=== PATIENT | male | born 1955 | race Caucasian/White ===

== ENCOUNTER 2018-05-27 12:29 | Inpatient (IN) | payer BC, OTHER ==
--- NOTE | 2018-05-27 12:40 | PDOC ---
History of Present Illness - General Chief Complaint: CVA/TIA Stated Complaint: CONFUSED Time Seen by Provider: 05/27/18 12:33 History Source: Patient Exam Limitations: Clinical Condition - History of Present Illness Initial Comments: 63 yo M history HL, HTN presents with altered speech. As per at bedside, he was speaking normally last night when they went to bed at 10:30pm. She left to run errands around 9 this morning, then returned home just before 12 noon. When she got home she noted that he was repeating a sentences that did not make sense, initially she thought he was joking. However, then she noted that he was having difficulty with word-finding and comprehension. No changes in movement nor sensation. He states that he is having difficulty answering questions, but is understanding most of what people are saying. No prior history of stroke. Past History - Past Medical History Allergies/Adverse Reactions: Allergies Allergy/AdvReac Type Severity Reaction Status Date / Time No Known Allergies Allergy Verified 05/27/18 12:31 Home Medications: Ambulatory Orders Lisinopril 10 mg PO DAILY 05/27/18 Review of Systems - Review of Systems Able to Perform ROS?: Yes Comments:: GENERAL/CONSTITUTIONAL: No fever or chills. No weakness. HEAD, EYES, EARS, NOSE AND THROAT: No change in vision. No ear pain or discharge. No sore throat. CARDIOVASCULAR: No chest pain or shortness of breath. RESPIRATORY: No cough, wheezing, or hemoptysis. GASTROINTESTINAL: No nausea, vomiting, diarrhea or constipation. GENITOURINARY: No dysuria, frequency, or change in urination. MUSCULOSKELETAL: No joint or muscle swelling or pain. No neck or back pain. SKIN: No rash NEUROLOGIC: No headache, vertigo, loss of consciousness, or change in strength/ sensation. +Speech and comprehension difficulty. ENDOCRINE: No increased thirst. No abnormal weight change. HEMATOLOGIC/LYMPHATIC: No anemia, easy bleeding, or history of blood clots. ALLERGIC/IMMUNOLOGIC: No hives or skin allergy. *Physical Exam - Physical Exam Comments: GENERAL: Awake, alert, and fully oriented, in no acute distress HEAD: No signs of trauma EYES: PERRLA, EOMI, sclera anicteric, conjunctiva clear ENT: Auricles normal inspection, hearing grossly normal, nares patent, oropharynx clear without exudates. Moist mucosa NECK: Normal ROM, supple, no lymphadenopathy, JVD, or masses LUNGS: Breath sounds equal, clear to auscultation bilaterally. No wheezes, and no crackles HEART: Regular rate and rhythm, normal S1 and S2, no murmurs, rubs or gallops ABDOMEN: Soft, nontender, normoactive bowel sounds. No guarding, no rebound. No masses EXTREMITIES: Normal range of motion, no edema. No clubbing or cyanosis. No cords, erythema, or tenderness NEUROLOGICAL: Cranial nerves II through XII grossly intact. Normal gait. Motor and sensation intact. Speech is intelligible, however, he does not answer questions appropriately. +Aphasia- word-finding difficulty. SKIN: Warm, Dry, normal turgor, no rashes or lesions noted. NIH Stroke Scale - Last Known Well Date/Time & Onset Date Last Known Well: 05/26/18 Time Last Known Well: 22:30 - Initial Evaluation Level of consciousness: Alert Ask patient the month and their age: Answers one correctly Ask patient to open & close eyes; make fist and let go: Obeys one correctly Best gaze (horizontal eye movement): Normal Visual field testing: No visual field loss Facial paresis (Show teeth/raise eyebrows/close eyes tight): Normal symmetrical movement Motor Function: Left Arm: Normal Motor Function: Right Arm: Normal (extends arm 90 (or 45) degrees for 10 seconds without drift Motor Function: Left Leg: Normal (extends leg 30 degrees for 5 seconds without drift) Motor Function: Right Leg: Normal (extends leg 30 degrees for 5 seconds without drift) Limb Ataxia: No ataxia Sensory(Use pinprick test arms,legs,trunk,face/side to side): Normal Best language (Describe picture, name items, read sentences): Mild to moderate aphasia Dysarthria (read several words): Normal articulation Extinction and Inattention: No abnormality - Total Score NIH Stroke Scale Score: 3 tPA Exclusion checklist 3-4.5h - Time Elapsed Date last known well: 05/26/18 Time last known well: 22:30 Elaspsed time: Day(s) and 16 Hour(s) and 22 Minutes - Thrombolytic Therapy Candidate Is patient eligible for thrombolytic therapy: No - Ineligibility reason(s) Reasons No tPA given: Outside of window - delayed arrival Heart Score/ECG Review - ECG Impressions Comment:: EKG read 12:46- Sinus kassi 53 bpm, no acute ST/T changes Critical Care Time/MDM Note - Medical Decision Making Note: 05/27/18 12:43 Pt last known well last night when he went to bed approximately 10:30pm. Now with aphasia and difficulty with comprehension. Suspected ischemic vs hemorrhagic stroke. Awaiting CTH, then will discuss with neurology. He is out of the window for tPA as last known well was more than 4.5 hrs ago. 05/27/18 14:08 CT read- no acute findings. Paged Dr. Villavicencio, process improvement consultant for neuro. Awaiting callback. 05/27/18 14:40 Case d/w Dr. Villavicencio, recommended aspirin, statin, MRI, transfer to [facility]. 05/27/18 14:52 D/w hospitalist LITERARY AGENT Ami. Accepted to [facility]. *DC/Admit/Observation/Transfer Diagnosis at time of Disposition: Cerebrovascular accident (CVA) Qualifiers: CVA mechanism: unspecified Qualified Code(s): I63.9 - Cerebral infarction, unspecified - Discharge Dispostion Condition at time of disposition: Stable Decision to Admit order: Yes - Referrals Referrals: Stephania Bhatti [Primary Care Provider] - - Patient Instructions - Post Discharge Activity
[2018-05-27] MEDS: SODIUM CHLORIDE 1,000 ML IV SCH (13:00)
[2018-05-27 13:18] LABS: ALBUMIN 3.8 g/dl (3.5-5.0); ALK PHOS 38 U/L (32-92); ANION GAP 7 MMOL/L (8-16); BILIRUBIN,TOTAL 0.7 mg/dl (0.2-1.0); BLOOD UREA NITROGEN 17 mg/dl (7-18); CALCIUM 9.4 mg/dl (8.4-10.2); CHLORIDE 106 mmol/L (98-107); CHOLESTEROL 158 mg/dl; CO2 24 mmol/L (22-28); CREATININE 0.9 mg/dl (0.6-1.3); GLUCOSE,RANDOM 99 mg/dl (74-106); HDL CHOLESTEROL 44 mg/dl (29-89); POTASSIUM 4.6 mmol/L (3.5-5.1); SGOT/AST 28 U/L (10-42); SGPT/ALT 37 U/L (10-40); SODIUM 137 mmol/L (136-145); TOT PROT 7.2 g/dl (6.4-8.3); TRIGLYCERIDES 136 mg/dl (35-160)
[2018-05-27 13:23] LABS: BASO % 1.7 % (0-2.0); EOS % 4.4 % (0-4.5); HEMOGLOBIN 14.7 GM/dl (11.7-16.9); MCH 31.3 pg (25.7-33.7); MCHC 32.7 g/dl (32.0-35.9); MEAN CELL VOLUME 95.6 fl (80-96); MEAN PLT VOLUME 9.6 fl (7.5-11.1); NEUT % 57.9 % (42.8-82.8); PLATELET COUNT 305 K/MM3 (134-434); RBC 4.71 M/mm3 (4.00-5.60); RDW 12.5 % (11.9-15.9); WHITE BLOOD COUNT 6.2 K/mm3 (4.0-10.8)
[2018-05-27 13:24] LABS: INR 1.05 (0.82-1.09); PROTHROMBIN TIME (PATIENT) 11.7 SEC (10.2-13.0)
[2018-05-27 13:49] LABS: URINE APPEARANCE Clear; URINE BILIRUBIN Negative (NEGATIVE); URINE COLOR Yellow; URINE GLUCOSE (UA) Negative (NEGATIVE); URINE KETONE Negative (NEGATIVE); URINE LEUK ESTERASE Negative (NEGATIVE); URINE NITRITE Negative (NEGATIVE); URINE PROTEIN Negative (NEGATIVE); URINE UROBILINOGEN 0.2 (0.2-1.0)
[2018-05-27] MEDS ORDERED: ASPIRIN 81 MG CHEWABLE TABLETS PO ONE (14:39)
[2018-05-27] MEDS ORDERED: ATORVASTATIN CA 80 MG TABLET (FP) PO ONE (14:39)
[2018-05-27] MEDS ORDERED: ATORVASTATIN CA 80 MG TABLET (FP) ONE (14:49)
[2018-05-27] MEDS ORDERED: ASPIRIN 325 MG TABLET ONE (14:49)
[2018-05-27 16:27] LABS: COCAINE, UR NEGATIVE ng/ml (CUTOFF=300); METHADONE, UR NEGATIVE ng/ml (CUTOFF=300); OPIATES, URI NEGATIVE ng/ml (CUTOFF=300); PHENCYCLIDINE,URINE NEGATIVE ng/ml (CUTOFF=25); URINE AMPHETAMINES NEGATIVE ng/ml (CUTOFF=500); URINE BARBITURATES NEGATIVE ng/ml (CUTOFF=200); URINE BENZODIAZEPINES NEGATIVE ng/ml (CUTOFF=200)
--- NOTE | 2018-05-27 17:19 | HP ---
CHIEF COMPLAINT: altered speech, feeling off PCP: Dr. Althea Bhatti HISTORY OF PRESENT ILLNESS: Patient was seen at [facility] and transferred to [facility] to rule out stroke. Patient is a 63 year old male with a significant past medical history of hypertension (on lisinopril daily). He presented to [facility] today for c/o of altered speech, unable to process what he was reading this morning, garbled speech and "feeling off". Patient was in his usual state of health last night, denies any dizziness, headaches or visual defects. When he woke up this morning he was reading the newspaper at around 0900 but could not process what he was reading. He was able to see the letters through his glasses but he could not comprehend what he was reading as it "was not making sense" to him. He later spoke on the phone with a friend but had difficulty expressing his words. When his came home at around 12pm and she noticed that he was repeating his sentences and did not make sense. He told her he felt "as though something was wrong". She noted that he was having difficulty with word finding and comprehension. No changes in movement or sensation. He was able to ambulate when he was at [place] parking lot and denies any lower extremity weakness. Patient denies chest pain, denies palpitation or dizziness. denies any sick contacts. Stroke workup was initiated. In the ED a head CT was negative. Patient had an MRI and brain MRA which shows a 0.5 cm acute cortical infart within the temporal /parietal lobe at the level to mid convexity level. There is also a 0.4x0.2 cm acute cortical infarct withinthe left parietal lobe more superiorly as well as 0.3cm acute cortical infart within the left temporal lobe posteriorly. No intracranial hemorrhage is noted. ER course was notable for: (1) acute infarct on mri (2) ekg with sinus bradycardia (3) given asa, given lipitor Recent Travel: none PAST MEDICAL HISTORY: hypertension PAST SURGICAL HISTORY: none Social History: Smoking: none Alcohol: none Drugs: none Family History: Allergies No Known Allergies Allergy (Verified 05/27/18 12:31) HOME MEDICATIONS: Home Medications Medication Instructions Recorded Lisinopril 10 mg PO DAILY 05/27/18 PHYSICAL EXAMINATION Vital Signs - 24 hr 05/27/18 05/27/18 05/27/18 12:31 12:45 13:05 Temperature 97.8 F Pulse Rate 55 L Pulse Rate [ 51 L 53 L Apical] Respiratory 16 16 17 Rate Blood Pressure 142/92 Blood Pressure 157/92 139/90 [Left Arm] O2 Sat by Pulse 95 98 98 Oximetry (%) 05/27/18 05/27/18 05/27/18 13:29 14:00 16:45 Temperature 98.1 F Pulse Rate 53 L Pulse Rate [ 51 L 53 L Apical] Respiratory 16 15 15 Rate Blood Pressure 126/90 Blood Pressure 137/92 122/92 [Left Arm] O2 Sat by Pulse 96 98 Oximetry (%) 05/27/18 16:50 Temperature Pulse Rate Pulse Rate [ 56 L Apical] Respiratory 16 Rate Blood Pressure Blood Pressure 144/72 [Left Arm] O2 Sat by Pulse 98 Oximetry (%) GENERAL: Awake, alert, and fully oriented, in no acute distress. HEAD: Normal with no signs of trauma. mild left facial droop EYES: Pupils equal, sclera anicteric, conjunctiva clear. No lid lag. EARS, NOSE, THROAT: Ears normal, nares patent, oropharynx clear without exudates. Moist mucous membranes. NECK: Normal range of motion, supple without lymphadenopathy, JVD, or masses. LUNGS: Breath sounds equal, clear to auscultation bilaterally HEART: sinus bradycardia 53 ABDOMEN: Soft, nontender, not distended, normoactive bowel sounds, no guarding MUSCULOSKELETAL: Normal range of motion at all joints. No bony deformities or tenderness. No CVA tenderness. UPPER EXTREMITIES: equal strength bilaterally LOWER EXTREMITIES: 2+ pulses, warm, well-perfused. No calf tenderness. No peripheral edema. NEUROLOGICAL: delayed garbled speech, alternating with clear speech with word finding difficulty PSYCHIATRIC: Cooperative. Good eye contact. Appropriate mood and affect. SKIN: Warm, dry, normal turgor, no rashes or lesions noted, normal capillary refill. Laboratory Results - last 24 hr 05/27/18 05/27/18 05/27/18 12:00 12:30 12:30 WBC 6.2 RBC 4.71 Hgb 14.7 Hct 45.0 MCV 95.6 MCH 31.3 MCHC 32.7 RDW 12.5 Plt Count 305 MPV 9.6 Absolute Neuts (auto) 3.5 Neutrophils % 57.9 Lymphocytes % 27.0 Monocytes % 9.0 Eosinophils % 4.4 Basophils % 1.7 PT with INR 11.7 INR 1.05 Sodium Potassium Chloride Carbon Dioxide Anion Gap BUN Creatinine Creat Clearance w eGFR Random Glucose Calcium Total Bilirubin AST ALT Alkaline Phosphatase Creatine Kinase Troponin I Total Protein Albumin Triglycerides Cholesterol Total LDL Cholesterol HDL Cholesterol Urine Color Urine Appearance Urine pH Ur Specific [place] Urine Protein Urine Glucose (UA) Urine Ketones Urine Blood Urine Nitrite Urine Bilirubin Urine Urobilinogen Ur Leukocyte Esterase Opiates Screen Negative Methadone Screen Negative Barbiturate Screen Negative Phencyclidine Screen Negative Ur Amphetamines Screen Negative MDMA (Ecstasy) Screen Negative Benzodiazepines Screen Negative Cocaine Screen Negative U Marijuana (THC) Screen Negative Blood Type Antibody Screen 05/27/18 05/27/18 05/27/18 12:30 12:30 12:30 WBC RBC Hgb Hct MCV MCH MCHC RDW Plt Count MPV Absolute Neuts (auto) Neutrophils % Lymphocytes % Monocytes % Eosinophils % Basophils % PT with INR INR Sodium 137 Potassium 4.6 Chloride 106 Carbon Dioxide 24 Anion Gap 7 L BUN 17 Creatinine 0.9 Creat Clearance w eGFR > 60 Random Glucose 99 Calcium 9.4 Total Bilirubin 0.7 AST 28 ALT 37 Alkaline Phosphatase 38 Creatine Kinase Troponin I < 0.03 Total Protein 7.2 Albumin 3.8 Triglycerides 136 Cholesterol 158 Total LDL Cholesterol 86 HDL Cholesterol 44 Urine Color Urine Appearance Urine pH Ur Specific [place] Urine Protein Urine Glucose (UA) Urine Ketones Urine Blood Urine Nitrite Urine Bilirubin Urine Urobilinogen Ur Leukocyte Esterase Opiates Screen Methadone Screen Barbiturate Screen Phencyclidine Screen Ur Amphetamines Screen MDMA (Ecstasy) Screen Benzodiazepines Screen Cocaine Screen U Marijuana (THC) Screen Blood Type A POSITIVE Antibody Screen Negative 05/27/18 05/27/18 05/27/18 12:30 12:30 13:40 WBC RBC Hgb Hct MCV MCH MCHC RDW Plt Count MPV Absolute Neuts (auto) Neutrophils % Lymphocytes % Monocytes % Eosinophils % Basophils % PT with INR INR Sodium Potassium Chloride Carbon Dioxide Anion Gap BUN Creatinine Creat Clearance w eGFR Random Glucose Calcium Total Bilirubin AST ALT Alkaline Phosphatase Creatine Kinase 139 Troponin I Total Protein Albumin Triglycerides Cholesterol Total LDL Cholesterol HDL Cholesterol Urine Color Yellow Urine Appearance Clear Urine pH 5.0 Ur Specific [place] 1.025 Urine Protein Negative Urine Glucose (UA) Negative Urine Ketones Negative Urine Blood Negative Urine Nitrite Negative Urine Bilirubin Negative Urine Urobilinogen 0.2 Ur Leukocyte Esterase Negative Opiates Screen Methadone Screen Barbiturate Screen Phencyclidine Screen Ur Amphetamines Screen MDMA (Ecstasy) Screen Benzodiazepines Screen Cocaine Screen U Marijuana (THC) Screen Blood Type A POSITIVE Antibody Screen ASSESSMENT/PLAN: Patient is a 63 year old male with a significant past medical history of hypertension (on lisinopril daily). He presented to [facility] today for c/o of altered speech, unable to process what he was reading this morning, garbled speech and "feeling off". Stroke workup was initiated. In the ED a head CT was negative. Patient had an MRI and brain MRA which shows a 0.5 cm acute cortical infart within the temporal /parietal lobe at the level to mid convexity level. There is also a 0.4x0.2 cm acute cortical infarct withinthe left parietal lobe more superiorly as well as 0.3cm acute cortical infart within the left temporal lobe posteriorly. No intracranial hemorrhage is noted. He is being admitted acute stroke. Imaging: Stroke workup was initiated. In the ED a head CT was negative. Patient had an MRI and brain MRA which shows a 0.5 cm acute cortical infart within the temporal /parietal lobe at the level to mid convexity level. There is also a 0.4x0.2 cm acute cortical infarct within the left parietal lobe more superiorly as well as 0.3cm acute cortical infarct within the left temporal lobe posteriorly. No intracranial hemorrhage is noted. Neurology Acute stroke MRI with 0.5cm acute cortical infarct w/in temp/parietal lobe, 0.4 x 0.2 cm acute cortical infarct. 0.3cm acute cortical infarct. Stroke protocol initiated. Patient out of tpa window on admission. symptoms began at 0900a.m. Given ASA 325mg and Lipitor 80mg in the ED To continue 81mg daily and lipitor 80mg daily Monitor on telemonitoring Neurology and cardiology consulted Neurologist notified by the ED. Passed bedside swallow test. Physical therapy and swallow evaluation echo ordered Cardiology Hypertension On Lisinopril daily monitor on tele trend troponins EKG with sinus bradycardia Cardiology consulted fen tolerating PO monitor electrolytes low salt diet prophy ASA Lipitor Telemonitoring physical therapy full code Visit type - Emergency Visit Emergency Visit: Yes ED Registration Date: 05/27/18 Care time: The patient presented to the Emergency Department on the above date and was hospitalized for further evaluation of their emergent condition. - New Patient This patient is new to me today: Yes Date on this admission: 05/27/18 - Critical Care Critical Care patient: No
[2018-05-27] MEDS ORDERED: SODIUM CHLORIDE 1,000 ML IV SCH (17:30)
[2018-05-27 18:38] VITALS: BMI 24.7
[2018-05-28 07:00] LABS: CHOLESTEROL 135 mg/dL (50-200); HDL CHOLESTEROL 37 mg/dL (40-60); TRIGLYCERIDES 108 mg/dL (0-150)
[2018-05-28 07:56] LABS: BASO % 1.1 % (0-2.0); EOS % 5.1 % (0-4.5); HEMATOCRIT 39.3 % (35.4-49); HEMOGLOBIN 13.7 GM/dL (11.7-16.9); LYMPH % 31.8 % (8-40); MCH 32.7 pg (25.7-33.7); MCHC 34.8 g/dl (32.0-35.9); MEAN CELL VOLUME 93.9 fl (80-96); MEAN PLT VOLUME 9.6 fl (7.5-11.1); MONO % 9.4 % (3.8-10.2); NEUT % 52.6 % (42.8-82.8); PLATELET COUNT 247 K/MM3 (134-434); RBC 4.18 M/mm3 (4.00-5.60); RDW 13.3 % (11.9-15.9); WHITE BLOOD COUNT 6.8 K/mm3 (4.0-10.0)
[2018-05-28 08:30] LABS: PROTHROMBIN TIME (PATIENT) 11.8 SEC (9.7-13.0)
--- NOTE | 2018-05-28 08:57 | CON.NEURO ---
Consult - History of Present Illness History of Present Illness: 63 year old male with a significant past medical history of hypertension (on lisinopril daily). He presented to [facility] 05/27/28 for c/o of altered speech, unable to process what he was reading this morning, garbled speech and "feeling off". Patient was in his usual state of health night prior to presentation , denies any dizziness, headaches or visual defects. When he woke up in morning he was reading the newspaper at around 0900 but could not process what he was reading. He was able to see the letters through his glasses but he could not comprehend what he was reading as it "was not making sense" to him. He later spoke on the phone with a friend but had difficulty expressing his words. When his came home at around 12pm and she noticed that he was repeating his sentences and did not make sense. He told her he felt "as though something was wrong". She noted that he was having difficulty with word finding and comprehension. No changes in movement or sensation. He was able to ambulate when he was at [place] parking lot and denies any lower extremity weakness. Unknown time of onste of stroke like sx-did not qualify for TpA. this AM, appears language better though still with fluency issues and difficulty with repetition and following crossed commands MRI + Left parietal /temporal infarct - Alcohol/Substance Use Hx Alcohol Use: No - Smoking History Smoking history: Never smoked Have you smoked in the past 12 months: No Home Medications - Allergies Allergies/Adverse Reactions: Allergies Allergy/AdvReac Type Severity Reaction Status Date / Time No Known Allergies Allergy Verified 05/27/18 12:31 - Home Medications Home Medications: Ambulatory Orders Lisinopril 10 mg PO DAILY 05/27/18 Physical Exam-Neuro Vital Signs: Vital Signs Temperature 98.4 F 05/28/18 08:01 Pulse Rate 62 05/28/18 08:01 Respiratory Rate 16 05/28/18 08:01 Blood Pressure 127/55 L 05/28/18 08:01 O2 Sat by Pulse Oximetry (%) 94 L 05/28/18 08:01 Labs: CBC, BMP 05/28/18 05:30 05/27/18 12:30 INR, PTT INR 1.00 (0.83-1.09) 05/28/18 08:05 - Neuro Exam Level Of Consciousness: Yes: Alert (awake, alert, knows month date , + grammatical errors, + difficulty following crossed commands, + poor reptition, good naming, EOMI, no facial, motor 5/5, no clear field cut ) Imaging - Results MRI: Report Reviewed, Image Reviewed Problem List - Problems (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 He presented to [facility] 05/27/28 for c/o of altered speech, unable to process what he was reading this morning, garbled speech and "feeling off". Patient was in his usual state of health night prior to presentation , denies any dizziness, headaches or visual defects. When he woke up in morning he was reading the newspaper at around 0900 but could not process what he was reading. He was able to see the letters through his glasses but he could not comprehend what he was reading as it "was not making sense" to him. He later spoke on the phone with a friend but had difficulty expressing his words. When his came home at around 12pm and she noticed that he was repeating his sentences and did not make sense. He told her he felt "as though something was wrong". She noted that he was having difficulty with word finding and comprehension. No changes in movement or sensation. He was able to ambulate when he was at [place] parking lot and denies any lower extremity weakness. Unknown time of onset of stroke like sx-did not qualify for TpA. MRI + Left parietal /temporal infarct A/P partail Wernikces Aphasia with left temporal /parietal infarct r/o embolic source MRA (-) DOPPLER, ECHO WITH BUBBLE, HOLTER and will likely need LOOP ASA, statin , BP STABLE DR BAE
[2018-05-28] MEDS: LISINOPRIL 10 MG TABLET (FP) PO SCH (09:38)
[2018-05-28] MEDS: ASPIRIN COATED 81 MG TABLET.EC PO SCH (09:38)
--- NOTE | 2018-05-28 11:29 | PN ---
Physical Exam: SUBJECTIVE: Patient seen and examined at the bedside. Patient reports feeling better, feels like his speech is improving. Denies any headaches, malaise or chest pain. denies palpitations. OBJECTIVE: laboratory monitor: sinus bradycardia ekg: sinus bradycardia. Trops: negative x 3 patient has been seen by speech and swallow as well as physical therapy Awaiting echo Continue to monitor on tele overnight May need further cardiac workup outpatient to r/o any arrythmias or cardiac cause of stroke Will need speech therapy outpatient. seen by Yenifer Taveras speech therapist at [facility]. patient can follow up outpatient. Vital Signs Period Temp Pulse Resp BP Sys/Fuentes Pulse Ox Last 24 Hr 97.4 F-98.4 F 51-62 15-20 117-157/55-92 94-98 GENERAL: Awake, alert, and fully oriented, in no acute distress. HEAD: Normal with no signs of trauma. mild left facial droop EYES: Pupils equal, sclera anicteric, conjunctiva clear. No lid lag. EARS, NOSE, THROAT: Ears normal, nares patent, oropharynx clear without exudates. Moist mucous membranes. NECK: Normal range of motion, supple without lymphadenopathy, JVD, or masses. LUNGS: Breath sounds equal, clear to auscultation bilaterally HEART: sinus bradycardia 53 ABDOMEN: Soft, nontender, not distended, normoactive bowel sounds, no guarding MUSCULOSKELETAL: Normal range of motion at all joints. No bony deformities or tenderness. No CVA tenderness. UPPER EXTREMITIES:left upper arm 4/5, right arm 5/5 LOWER EXTREMITIES: 2+ pulses, warm, well-perfused. No calf tenderness. No peripheral edema. NEUROLOGICAL: delayed garbled speech, alternating with clear speech with word finding difficulty, speech overall improving, speaking clearer and in full sentences. PSYCHIATRIC: Cooperative. Good eye contact. Appropriate mood and affect. SKIN: Warm, dry, normal turgor, no rashes or lesions noted, normal capillary refill. Laboratory Results - last 24 hr 05/27/18 05/27/18 05/27/18 12:00 12:30 12:30 WBC 6.2 RBC 4.71 Hgb 14.7 Hct 45.0 MCV 95.6 MCH 31.3 MCHC 32.7 RDW 12.5 Plt Count 305 MPV 9.6 Absolute Neuts (auto) 3.5 Neutrophils % 57.9 Lymphocytes % 27.0 Monocytes % 9.0 Eosinophils % 4.4 Basophils % 1.7 Nucleated RBC % PT with INR 11.7 INR 1.05 Sodium Potassium Chloride Carbon Dioxide Anion Gap BUN Creatinine Creat Clearance w eGFR Random Glucose Hemoglobin A1c % Calcium Magnesium Total Bilirubin AST ALT Alkaline Phosphatase Creatine Kinase Troponin I Total Protein Albumin Triglycerides Cholesterol Total LDL Cholesterol HDL Cholesterol Urine Color Urine Appearance Urine pH Ur Specific [place] Urine Protein Urine Glucose (UA) Urine Ketones Urine Blood Urine Nitrite Urine Bilirubin Urine Urobilinogen Ur Leukocyte Esterase Opiates Screen Negative Methadone Screen Negative Barbiturate Screen Negative Phencyclidine Screen Negative Ur Amphetamines Screen Negative MDMA (Ecstasy) Screen Negative Benzodiazepines Screen Negative Cocaine Screen Negative U Marijuana (THC) Screen Negative Blood Type Antibody Screen 05/27/18 05/27/18 05/27/18 12:30 12:30 12:30 WBC RBC Hgb Hct MCV MCH MCHC RDW Plt Count MPV Absolute Neuts (auto) Neutrophils % Lymphocytes % Monocytes % Eosinophils % Basophils % Nucleated RBC % PT with INR INR Sodium 137 Potassium 4.6 Chloride 106 Carbon Dioxide 24 Anion Gap 7 L BUN 17 Creatinine 0.9 Creat Clearance w eGFR > 60 Random Glucose 99 Hemoglobin A1c % Calcium 9.4 Magnesium Total Bilirubin 0.7 AST 28 ALT 37 Alkaline Phosphatase 38 Creatine Kinase Troponin I < 0.03 Total Protein 7.2 Albumin 3.8 Triglycerides 136 Cholesterol 158 Total LDL Cholesterol 86 HDL Cholesterol 44 Urine Color Urine Appearance Urine pH Ur Specific [place] Urine Protein Urine Glucose (UA) Urine Ketones Urine Blood Urine Nitrite Urine Bilirubin Urine Urobilinogen Ur Leukocyte Esterase Opiates Screen Methadone Screen Barbiturate Screen Phencyclidine Screen Ur Amphetamines Screen MDMA (Ecstasy) Screen Benzodiazepines Screen Cocaine Screen U Marijuana (THC) Screen Blood Type A POSITIVE Antibody Screen Negative 05/27/18 05/27/18 05/27/18 12:30 12:30 13:40 WBC RBC Hgb Hct MCV MCH MCHC RDW Plt Count MPV Absolute Neuts (auto) Neutrophils % Lymphocytes % Monocytes % Eosinophils % Basophils % Nucleated RBC % PT with INR INR Sodium Potassium Chloride Carbon Dioxide Anion Gap BUN Creatinine Creat Clearance w eGFR Random Glucose Hemoglobin A1c % Calcium Magnesium Total Bilirubin AST ALT Alkaline Phosphatase Creatine Kinase 139 Troponin I Total Protein Albumin Triglycerides Cholesterol Total LDL Cholesterol HDL Cholesterol Urine Color Yellow Urine Appearance Clear Urine pH 5.0 Ur Specific [place] 1.025 Urine Protein Negative Urine Glucose (UA) Negative Urine Ketones Negative Urine Blood Negative Urine Nitrite Negative Urine Bilirubin Negative Urine Urobilinogen 0.2 Ur Leukocyte Esterase Negative Opiates Screen Methadone Screen Barbiturate Screen Phencyclidine Screen Ur Amphetamines Screen MDMA (Ecstasy) Screen Benzodiazepines Screen Cocaine Screen U Marijuana (THC) Screen Blood Type A POSITIVE Antibody Screen 05/27/18 05/28/18 05/28/18 18:42 02:01 05:30 WBC RBC Hgb Hct MCV MCH MCHC RDW Plt Count MPV Absolute Neuts (auto) Neutrophils % Lymphocytes % Monocytes % Eosinophils % Basophils % Nucleated RBC % PT with INR INR Sodium Potassium Chloride Carbon Dioxide Anion Gap BUN Creatinine Creat Clearance w eGFR Random Glucose Hemoglobin A1c % Calcium Magnesium 2.0 Total Bilirubin AST ALT Alkaline Phosphatase Creatine Kinase Troponin I < 0.02 < 0.02 Total Protein Albumin Triglycerides 108 Cholesterol 135 Total LDL Cholesterol 78 77 HDL Cholesterol 37 L Urine Color Urine Appearance Urine pH Ur Specific [place] Urine Protein Urine Glucose (UA) Urine Ketones Urine Blood Urine Nitrite Urine Bilirubin Urine Urobilinogen Ur Leukocyte Esterase Opiates Screen Methadone Screen Barbiturate Screen Phencyclidine Screen Ur Amphetamines Screen MDMA (Ecstasy) Screen Benzodiazepines Screen Cocaine Screen U Marijuana (THC) Screen Blood Type Antibody Screen 05/28/18 05/28/18 05/28/18 05:30 08:05 08:05 WBC 6.8 RBC 4.18 Hgb 13.7 Hct 39.3 MCV 93.9 MCH 32.7 MCHC 34.8 RDW 13.3 Plt Count 247 MPV 9.6 Absolute Neuts (auto) 3.6 Neutrophils % 52.6 Lymphocytes % 31.8 Monocytes % 9.4 Eosinophils % 5.1 H Basophils % 1.1 Nucleated RBC % 0 PT with INR 11.80 INR 1.00 Sodium Potassium Chloride Carbon Dioxide Anion Gap BUN Creatinine Creat Clearance w eGFR Random Glucose Hemoglobin A1c % 6.2 Calcium Magnesium Total Bilirubin AST ALT Alkaline Phosphatase Creatine Kinase Troponin I Total Protein Albumin Triglycerides Cholesterol Total LDL Cholesterol HDL Cholesterol Urine Color Urine Appearance Urine pH Ur Specific [place] Urine Protein Urine Glucose (UA) Urine Ketones Urine Blood Urine Nitrite Urine Bilirubin Urine Urobilinogen Ur Leukocyte Esterase Opiates Screen Methadone Screen Barbiturate Screen Phencyclidine Screen Ur Amphetamines Screen MDMA (Ecstasy) Screen Benzodiazepines Screen Cocaine Screen U Marijuana (THC) Screen Blood Type Antibody Screen Active Medications Generic Name Dose Route Start Last Admin Trade Name Freq PRN Reason Stop Dose Admin Aspirin 81 mg 05/28/18 10:00 05/28/18 09:38 Ecotrin - PO 81 mg DAILY LISBETH Administration Atorvastatin Calcium 80 mg 05/28/18 22:00 Lipitor - PO HS LISBETH Sodium Chloride 1,000 mls @ 42 mls/hr 05/27/18 12:45 05/27/18 13:00 Normal Saline - IV 42 mls/hr ASDIR LISBETH Administration Sodium Chloride 1,000 mls @ 42 mls/hr 05/27/18 17:30 05/27/18 18:59 Normal Saline - IV 42 mls/hr ASDIR LISBETH Administration Lisinopril 10 mg 05/28/18 10:00 05/28/18 09:38 Prinivil PO 10 mg DAILY LISBETH Administration ASSESSMENT/PLAN: Patient is a 63 year old male with a significant past medical history of hypertension (on lisinopril daily). He presented to [facility] today for c/o of altered speech, unable to process what he was reading this morning, garbled speech and "feeling off". Stroke workup was initiated. In the ED a head CT was negative. Patient had an MRI and brain MRA which shows a 0.5 cm acute cortical infarct within the temporal/parietal lobe at the level to mid convexity level. There is also a 0.4x0.2 cm acute cortical infarct within the left parietal lobe more superiorly as well as 0.3cm acute cortical infarct within the left temporal lobe posteriorly. No intracranial hemorrhage is noted. He is being admitted acute stroke. Imaging: MRI and brain MRA which shows a 0.5 cm acute cortical infart within the temporal /parietal lobe at the level to mid convexity level. There is also a 0.4x0.2 cm acute cortical infarct within the left parietal lobe more superiorly as well as 0.3cm acute cortical infarct within the left temporal lobe posteriorly. No intracranial hemorrhage is noted. Neurology Acute stroke MRI with 0.5cm acute cortical infarct w/in temp/parietal lobe, 0.4 x 0.2 cm acute cortical infarct. 0.3cm acute cortical infarct. Stroke protocol initiated. Patient out of tpa window on admission. Given ASA 325mg and Lipitor 80mg in the ED on admission. To continue 81mg daily and lipitor 20mg daily Monitor on telemonitoring, currently in sinus bradycardia 50s. asymptomatic. Neurology and cardiology consulted and following. Patient seen by speech and swallow, can be advanced to a regular low salt diet from a dysphagia diet echo ordered. carotid ordered and pending Cardiology Hypertension. controlled. BP at goal. On Lisinopril 10mg daily monitor on tele troponins negative x 3 EKG with sinus bradycardia Cardiology consulted and following fen tolerating PO monitor electrolytes low salt diet prophy ASA Lipitor Telemonitoring physical therapy full code Visit type - Emergency Visit Emergency Visit: Yes ED Registration Date: 05/27/18 Care time: The patient presented to the Emergency Department on the above date and was hospitalized for further evaluation of their emergent condition. - New Patient This patient is new to me today: No - Critical Care Critical Care patient: No - Discharge Referral Referred to [facility] Med P.C.: No
--- NOTE | 2018-05-28 11:33 | CONSULT ---
Admitting History and Physical - Primary Care Physician PCP: Omer Mendes - Admission History of Present Illness: Per EMR: 63 year old male with a significant past medical history of hypertension (on lisinopril daily). He presented to [facility] 05/27/28 for c/o of altered speech, unable to process what he was reading this morning, garbled speech and "feeling off". Patient was in his usual state of health night prior to presentation , denies any dizziness, headaches or visual defects. When he woke up in morning he was reading the newspaper at around 0900 but could not process what he was reading. He was able to see the letters through his glasses but he could not comprehend what he was reading as it "was not making sense" to him. He later spoke on the phone with a friend but had difficulty expressing his words. When his came home at around 12pm and she noticed that he was repeating his sentences and did not make sense. He told her he felt "as though something was wrong". She noted that he was having difficulty with word finding and comprehension. No changes in movement or sensation. He was able to ambulate when he was at [place] parking lot and denies any lower extremity weakness. Unknown time of onset of stroke like sx-did not qualify for TpA. MRI + Left parietal /temporal infarct Staff reports Gibberish yesterday, with impaired ability to produce intelligible speech. Today, there is significant improvement as compared to yesterday's reported languagew function, still with Aphasia but less severe. 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 History - Admission Reason For Visit: CEREBRAL INFARCT - Diagnostics X-ray: Report Reviewed CT Scan: Report Reviewed MRI: Report Reviewed - General Mental Status: Alert and Oriented, Awake and Alert Attention: Intact Ability to Follow Directions: Poor (Requires repetition, slow speech, with difficulty with 1 step commands) Head/Neck Control: WFL - Hearing Hearing: Normal Hearing Aide: No With Patient: No Speech Evaluation - Communication Primary Language: SAO TOMEAN (fluent baseline) Communication: Yes: Aphasia Oral Expression Ability: Yes: Moderate Impairment, Severe Impairment - Speech Production Apraxia: No Able to Make Needs Known: Yes: Mildly Impaired Intelligibility: Yes: WNL - Speech Characteristics Voice Loudness: Normal Voice Pitch: Yes: Normal Voice Phonatory-based Quality: Yes: Normal Speech Pattern: Impaired Speech Clarity: < 75% Nasal Resonance: Normal Articulation: Yes: Precise - Language/Auditory Comprehension Observation: Able to respond to yes/no queries: No (Intermittent.Requires repetition, slow speech, with difficulty ), Yes/No Confusion: No, Comprehends Conversational Speech: No (Requires repetition, slow speech, with difficulty ), Benefits from Slow Speech: Yes, Benefits from Repetiton: Yes, Benefits from Increased Volume of Speech: No - Language/Verbal Expression Aphasia: Yes: Fluent, Anomia, Paraphrasic Errors, Neologisms, Sound Errors, Grammatic Errors Able to Respond to Simple Queries: Yes: Moderately Impaired Able to Communicate Wants and Needs: Yes: Moderately Impaired, Severely Impaired Functional Communication Status: Yes: Moderately Impaired, Severely Impaired Attempts to Correct Errors: No Written Expression: Pt was able to write a paragraph with fair accuracy Oral Expression: Pt speaks in hesitant sentences, with occasional paraphasic errors and neologisms without awareness. "I cant read like a sent." Reading Comprehension: Pt is able to understand simple short written words. He is aware when he does not understand certain words. Reading comprehension, although quite impaired, is better than auditory comprehension and can be used to supplement and help pt communication and comprhend language. - Memory/Perception shelter Memory: Yes: WNL Short Term Memory: Yes: WNL - Swallow Evaluation/Bedside Assessment Current Nutritional Intake: Regular, Thin Liquids Oral Secretions: Yes: WFL Dentition: Yes: Adequate Facial Symmetry at Rest: Symmetrical Facial Symmetry on Retraction: Symmetrical Facial Movement: Controlled Sensation: Normal Against Resistance Opening: Normal Against Resistance Closing: Normal Pucker Lips: Normal Smile: Normal Lingual Movement: Normal, Symmetric Lingual Speed of Movement: Normal Lingual Movement Strgth Against Opposition: Normal Lingual Movement Characteristics: Normal Velopharyngeal Movement: Normal Laryngeal Elevation: WFL Laryngeal Movement: Able to Palpate Rate of Intake: WFL Bolus Size: WFL Labial Seal: WFL Chewing: WFL Oral Prep Time: WFL A-P Transit: WFL Pocketing: None Timing of Swallow: WFL Coughing/Throat Clear: No Change in Voice: No Recommendations - Speech Evaluation, Impression/Plan Impression: 63 yo with MCA infarct, presents with Moderate to Severe receptive language deficits (Auditory/reading) with Mild to moderate Expressive, fluent speech c/w Wernicke's Aphasia. Pt hears but can not process, pretty aware of his difficulty.Not always aware of expressive deficits or processing difficulty. EG Close your eyes --"Close my mouth?" Excellent improvement with 1 hour of speech tx given today. Excellent prognosis for improvement with intensive speech therapy.Pt counseled to TELL speaker to "Speak Slowly" "Say it again" "Use short sentences." Recommended Therapies: Language Recommended Frequency for Therapy: Three x Week - Disposition Discharge to: Home with Assist - Dysphagia Impressions/Plan Swallowing Skills: WFL Dysphagia Impressions: No Impairment *Silent aspiration: cannot be R/O at bedside Recommendations: Other (Speech therapy to continue as out pt.) - Recommendations Diet Consistency: Regular Medication Administration: Whole with water Liquids: Thin Liquids
--- NOTE | 2018-05-28 12:21 | CON.CARD ---
Consult Consult Specialty:: Cardiology Referred by:: Hospitalist Medicine Reason for Consultation:: Acute stroke - History of Present Illness Chief Complaint: Acute stroke History of Present Illness: 63 year old male with a significant past medical history of hypertension presented to [facility] 05/27/28 for c/o of altered speech, unable to process what he was reading this morning, garbled speech and "feeling off" denies any dizziness, headaches or visual defects. He was able to see letters on newspapers through his glasses but he could not comprehend what he was reading as it "was not making sense" to him. He later spoke on the phone with a friend but had difficulty expressing his words. When his came home at around 12pm and she noticed that he was repeating his sentences and did not make sense. He told her he felt "as though something was wrong". She noted that he was having difficulty with word finding and comprehension. No changes in movement or sensation. He was able to ambulate when he was at [place] parking lot and denies any lower extremity weakness. Unknown time of onset of stroke like sx-did not qualify for TPA. 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 - Allergies Allergies/Adverse Reactions: Allergies Allergy/AdvReac Type Severity Reaction Status Date / Time No Known Allergies Allergy Verified 05/27/18 12:31 - Home Medications Home Medications: Ambulatory Orders Lisinopril 10 mg PO DAILY 05/27/18 Review of Systems - Review of Systems Neurological: reports: Change in Speech Vital Signs: Vital Signs Temperature 98.4 F 05/28/18 08:01 Pulse Rate 62 05/28/18 08:01 Respiratory Rate 16 05/28/18 08:01 Blood Pressure 127/55 L 05/28/18 08:01 O2 Sat by Pulse Oximetry (%) 94 L 05/28/18 08:01 Constitutional: Yes: No Distress, Calm Neck: Yes: Supple Respiratory: Yes: Regular, CTA Bilaterally Gastrointestinal: Yes: Normal Bowel Sounds, Soft Cardiovascular: Yes: Regular Rate and Rhythm JVD: No Carotid Bruit: No Heart Sounds: Yes: S1, S2 Edema: No Neurological: Yes: Aphasia (Expressive) - Other Data Labs, Other Data: CBC, BMP 05/28/18 05:30 05/27/18 12:30 INR, PTT INR 1.00 (0.83-1.09) 05/28/18 08:05 Troponin, BNP 05/27/18 05/27/18 05/28/18 12:30 18:42 02:01 Troponin I < 0.03 < 0.02 < 0.02 Troponin, BNP 05/27/18 05/27/18 05/28/18 12:30 18:42 02:01 Troponin I < 0.03 < 0.02 < 0.02 SB @ [address]-T changes Tele: SR, no PAF Imaging - Results MRI: Report Reviewed Problem List - Problems (1) Hypertension Code(s): I10 - ESSENTIAL (PRIMARY) HYPERTENSION Qualifiers: Hypertension type: essential hypertension Qualified Code(s): I10 - Essential (primary) hypertension (2) Aphasia Code(s): R47.01 - APHASIA (3) Cerebrovascular accident (CVA) Code(s): I63.9 - CEREBRAL INFARCTION, UNSPECIFIED Qualifiers: CVA mechanism: embolism Precerebral and cerebral artery: middle cerebral artery Laterality of affected vessel: left Qualified Code(s): I63.412 - Cerebral infarction due to embolism of left middle cerebral artery (4) Left middle cerebral artery embolism Code(s): I66.02 - OCCLUSION AND STENOSIS OF LEFT MIDDLE CEREBRAL ARTERY Assessment/Plan 05/27/2018 Brain MRI: small acute left parietal and temporal infarcts in MCA distribution, MRA negative 1. Acute left temporal /parietal infarct in MCA distribution with partial Wernicke's aphasia, r/o embolic source 2. Hypertension P:1. F/u echo, carotid, tele monitor for exclude PAF, would benefit from longer term arrhythmia monitor if telemetry monitoring unrevealing 2. Continue ASA 81 qd, lisinopril 10 qd, decrease Lipitor 20 qd with check TSH 3. Speech and swallow evaluation appreciated 4. Thank you for consultative opportunity
[2018-05-28] MEDS: SODIUM CHLORIDE 1,000 ML IV SCH (12:45)
[2018-05-28] MEDS ORDERED: ATORVASTATIN CA 20 MG TABLET (FP) PO SCH (22:00)
[2018-05-28] MEDS ORDERED: ATORVASTATIN CA 80 MG TABLET (FP) PO SCH (22:00)
--- NOTE | 2018-05-29 08:18 | PN ---
Progress Note (short form) - Note Progress Note: Chief Complaint: Events noted, notes reviewed, denies any chest pain or dyspnea , no new neurological deficits reported History of Present Illness: Seen and examined on telemetry. Events noted, notes reviewed, denies any chest pain or dyspnea, no new neurological deficits reported Echocardiography study is pending Carotid Doppler study revealed minimal intimal thickening with no evidence of hemodynamically significant stenosis bilaterally Medications: Current Medications Aspirin (Ecotrin -) 81 mg PO DAILY [facility] Last Admin: 05/28/18 09:38 Dose: 81 mg Atorvastatin Calcium (Lipitor -) 20 mg PO HS [facility] Last Admin: 05/28/18 21:06 Dose: 20 mg Sodium Chloride (Normal Saline -) 1,000 mls @ 42 mls/hr IV ASDIR [facility] Last Admin: 05/28/18 12:45 Dose: Not Given Lisinopril (Prinivil) 10 mg PO DAILY [facility] Last Admin: 05/28/18 09:38 Dose: 10 mg Review of Systems - Review of Systems Constitutional: denies: Chills, Fever Cardiovascular: As noted above Respiratory: denies: Cough or Sputum Production Gastrointestinal: denies: Nausea, Vomiting, Diarrhea, Constipation, Abdominal Pain Neurological: denies: Headaches Vital Signs: Last Vital Signs Temp Pulse Resp BP Pulse Ox 97.4 F L 54 L 16 126/75 94 L 05/29/18 05:00 05/29/18 05:00 05/29/18 05:00 05/29/18 05:00 05/28/18 19:48 Intake & Output 05/26/18 05/27/18 05/28/18 05/29/18 23:59 23:59 23:59 23:59 Intake Total 510 1064 Balance 510 1064 Weight 158 lb 4 oz Neck: Supple Negative JVD No Bruit Respiratory: Clear to A&P Cardiovascular: S1 S2 Regular Rate and Rhythm Gastrointestinal: Soft Benign Normal Bowel Sounds Ext: No Edema Labs: CBC, BMP 05/28/18 05:30 05/27/18 12:30 Hepatic Panel Total Bilirubin 0.7 mg/dl (0.2-1.0) 05/27/18 12:30 AST 28 U/L (10-42) 05/27/18 12:30 ALT 37 U/L (10-40) 05/27/18 12:30 Alkaline Phosphatase 38 U/L (32-92) 05/27/18 12:30 Albumin 3.8 g/dl (3.5-5.0) 05/27/18 12:30 INR, PTT INR 1.00 (0.83-1.09) 05/28/18 08:05 Assessment/Plan ASSESSMENT: 1. Acute left temporal/parietal infarct in MCA distribution with partial Wernicke's aphasia, rule out embolic source 2. Hypertension PLAN: 1. Continue lisinopril 2. Continue ASA 3. Continue Lipitor 4. Await echocardiography 5. Patient will probably benefit from extended outpatient monitoring and possible ILR/implantable loop recorder insertion Discussed in detail with the patient Leslie Heredia M.D.
[2018-05-29] MEDS: LISINOPRIL 10 MG TABLET (FP) PO SCH (09:00)
[2018-05-29] MEDS: ASPIRIN COATED 81 MG TABLET.EC PO SCH (09:00)
[2018-05-29 09:06] LABS: BASO % 0.9 % (0-2.0); EOS % 2.9 % (0-4.5); HEMATOCRIT 42.7 % (35.4-49); HEMOGLOBIN 14.2 GM/dL (11.7-16.9); LYMPH % 20.6 % (8-40); MCH 30.9 pg (25.7-33.7); MCHC 33.2 g/dl (32.0-35.9); MONO % 6.4 % (3.8-10.2); NEUT % 69.2 % (42.8-82.8); PLATELET COUNT 270 K/MM3 (134-434); RBC 4.59 M/mm3 (4.00-5.60); RDW 13.4 % (11.9-15.9); WHITE BLOOD COUNT 7.5 K/mm3 (4.0-10.0)
[2018-05-29 09:30] VITALS: BP 136/78; PULSE 61; TEMP 97.5
--- NOTE | 2018-05-29 09:40 | PN ---
Progress Note (short form) - Note Progress Note: 63 year old male with a significant past medical history of hypertension (on lisinopril daily). He presented to [facility] 05/27/28 for c/o of altered speech, unable to process what he was reading this morning, garbled speech and "feeling off". Patient was in his usual state of health night prior to presentation , denies any dizziness, headaches or visual defects. When he woke up in morning he was reading the newspaper at around 0900 but could not process what he was reading. He was able to see the letters through his glasses but he could not comprehend what he was reading as it "was not making sense" to him. He later spoke on the phone with a friend but had difficulty expressing his words. When his came home at around 12pm and she noticed that he was repeating his sentences and did not make sense. He told her he felt "as though something was wrong". She noted that he was having difficulty with word finding and comprehension. No changes in movement or sensation. He was able to ambulate when he was at [employer] parking lot and denies any lower extremity weakness. Unknown time of onste of stroke like sx-did not qualify for TpA. 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, crossed commands and repetition remains an issue BP stable - Alcohol/Substance Use Hx Alcohol Use: No - Smoking History Smoking history: Never smoked Have you smoked in the past 12 months: No Home Medications - Allergies Allergies/Adverse Reactions: Allergies Allergy/AdvReac Type Severity Reaction Status Date / Time No Known Allergies Allergy Verified 05/27/18 12:31 - Home Medications Home Medications: Ambulatory Orders Lisinopril 10 mg PO DAILY 05/27/18 Physical Exam-Neuro Vital Signs: Vital Signs Temperature 97.5 F L 05/29/18 09:00 Pulse Rate 61 05/29/18 09:00 Respiratory Rate 16 05/29/18 09:00 Blood Pressure 136/78 05/29/18 09:00 O2 Sat by Pulse Oximetry (%) 96 05/29/18 09:00 Labs: CBC, BMP 05/28/18 05:30 05/27/18 12:30 INR, PTT INR 1.00 (0.83-1.09) 05/28/18 08:05 - Neuro Exam Level Of Consciousness: Yes: Alert (awake, alert, knows month date , + grammatical errors, + difficulty following crossed commands, + poor reptition, good naming, EOMI, no facial, motor 5/5, no clear field cut ) Imaging - Results MRI: Report Reviewed, Image Reviewed Problem List - Problems (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 He presented to [facility] 05/27/28 for c/o of altered speech, unable to process what he was reading this morning, garbled speech and "feeling off". Patient was in his usual state of health night prior to presentation , denies any dizziness, headaches or visual defects. When he woke up in morning he was reading the newspaper at around 0900 but could not process what he was reading. He was able to see the letters through his glasses but he could not comprehend what he was reading as it "was not making sense" to him. He later spoke on the phone with a friend but had difficulty expressing his words. When his came home at around 12pm and she noticed that he was repeating his sentences and did not make sense. He told her he felt "as though something was wrong". She noted that he was having difficulty with word finding and comprehension. No changes in movement or sensation. He was able to ambulate when he was at [employer] parking lot and denies any lower extremity weakness. Unknown time of onset of stroke like sx-did not qualify for TpA. 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 r/o embolic source MRA (-) DOPPLER (-) ECHO WITH BUBBLE, HOLTER and will likely need LOOP ASA, statin , BP STABLE speech TX/ rehab planning DR BAE Problem List - Problems (1) Left middle cerebral artery embolism Code(s): I66.02 - OCCLUSION AND STENOSIS OF LEFT MIDDLE CEREBRAL ARTERY (2) Aphasia Code(s): R47.01 - APHASIA (3) Cerebrovascular accident (CVA) Code(s): I63.9 - CEREBRAL INFARCTION, UNSPECIFIED Qualifiers: CVA mechanism: embolism Precerebral and cerebral artery: middle cerebral artery Laterality of affected vessel: left Qualified Code(s): I63.412 - Cerebral infarction due to embolism of left middle cerebral artery
[2018-05-29 10:03] LABS: ALBUMIN 3.4 g/dl (3.4-5.0); ALK PHOS 39 U/L (45-117); ANION GAP 8 MMOL/L (8-16); BILIRUBIN,TOTAL 0.7 mg/dL (0.2-1); BLOOD UREA NITROGEN 14 mg/dL (7-18); CALCIUM 8.6 mg/dL (8.5-10.1); CHLORIDE 106 mmol/L (98-107); CO2 24 mmol/L (21-32); GLUCOSE,RANDOM 115 mg/dL (74-106); POTASSIUM 4.4 mmol/L (3.5-5.1); SGOT/AST 20 U/L (15-37); SGPT/ALT 37 U/L (13-61); SODIUM 137 mmol/L (136-145)
--- NOTE | 2018-05-29 14:13 | PN ---
Progress Note, STRIPER - Note Progress Note: Tolerating diet weell, without signs of Dysphagia. Worked with pt and his , educating them both on Aphasia, ways to maximize communication, auditory comprehension, paired with graphic cues. At times, pt responds to questions and there is excellent turntaking and function. Other times, pt unable to comprehend simple 1 step commands, eg point to the ceiling, needing to see it written to understand. Pt seems cognitively intact and plans on returning to work. He will receive speech therapy upon discharge. Prognosis for improvement is excellent.
--- NOTE | 2018-05-29 15:43 | ECHO ---
Name: MARISOL AGUERO Exam:Adult Echocardiogram Study Date: 05/29/2018 11:46 AM Age: 63 yrs Reason For Study: CVA/ BUBBLE STUDY Height: 67 in Weight: 158 lb BSA: 1.8 m2 MMode/2D Measurements & Calculations IVSd: 1.3 cm Ao root diam: 3.4 cm LVIDd: 3.8 cm LA dimension: 3.8 cm LVIDs: 2.7 cm LVPWd: 1.2 cm EDV(Teich): 62.7 ml LAV (MOD-bp): 65.9 ml ESV(Teich): 27.8 ml Doppler Measurements & Calculations MV E max yves: 66.5 cm/sec MR max yves: 369.5 cm/sec MV A max yves: 65.0 cm/sec MR max P.6 mmHg MV E/A: 1.0 MV dec time: 0.14 sec Med Peak E' Yves: 6.7 cm/sec PI Vmax: 131.7 cm/sec Med E/e': 9.9 Lat Peak E' Yves: 10.4 cm/sec Lat E/e': 6.4 Procedure A two-dimensional transthoracic echocardiogram with color flow and Doppler was performed. The injecti on was performed through an intravenous line in the right arm. Left Ventricle The left ventricle is normal in size. There is mild concentric left ventricular hypertrophy. The left ventricle is normal in structure and function. LVEF = 60%. E/A reversal consistent with but not diagn ostic of poor LV compliance. Right Ventricle The right ventricle is mildly dilated. The right ventricular systolic function is mildly reduced. Atria The left atrium is moderately dilated. The right atrium is mildly dilated. Agitated saline injection demonstrates no evidence of intracardiac shunt or right to left shunt. Mitral Valve The mitral valve is normal. There is trace mitral regurgitation. Tricuspid Valve The tricuspid valve is not well visualized, but is grossly normal. There is mild tricuspid regurgitat ion. There is severe pulmonary hypertension. Right ventricular systolic pressure is 65 mmhg. Aortic Valve The aortic valve is normal in structure and function. Interpretation Summary There is mild concentric left ventricular hypertrophy. The left ventricle is normal in structure and function. LVEF = 60%. The right ventricle is mildly dilated. The right ventricular systolic function is mildly reduced. The left atrium is moderately dilated. The right atrium is mildly dilated. The mitral valve is normal. There is trace mitral regurgitation. The aortic valve is normal in structure and function. The tricuspid valve is not well visualized, but is grossly normal. There is mild tricuspid regurgitat ion. There is severe pulmonary hypertension. Right ventricular systolic pressure is 65 mmhg. Agitated saline injection demonstrates no evidence of intracardiac shunt or right to left shunt. MD Mariah Mcgregor 05/29/2018 03:43 PM
--- NOTE | 2018-05-29 16:47 | DS ---
Physical Exam: OBJECTIVE: Afebrile/Hemodynamically stable. Vital Signs Period Temp Pulse Resp BP Sys/Fuentes Pulse Ox Last 24 Hr 97.4 F-97.9 F 54-61 16-18 117-141/67-95 94-96 PHYSICAL EXAM GENERAL: The patient is awake, alert, and fully oriented, in no acute distress. HEAD: Atraumatic/Normocephalic EYES: PERRL, extraocular movements intact NECK: No pharyngeal erythema/exudate. No lymphadenopathy LUNGS: Breath sounds equal, clear to auscultation bilaterally, no wheezes, no crackles HEART: Regular rate and rhythm, S1, S2 ABDOMEN: Soft, nontender, nondistended, normoactive bowel sounds, no guarding, no rebound EXTREMITIES: 2+ pulses, warm, well-perfused, no edema. NEUROLOGICAL: Cranial nerves II through XII grossly intact. Tone/Power normal all 4 extremities. Exhibits both receptive and expressive dysphasia - mild. NO dysarthria. PSYCH: Normal mood, normal affect. LABS Laboratory Results - last 24 hr 05/29/18 05/29/18 08:40 08:40 WBC 7.5 RBC 4.59 Hgb 14.2 Hct 42.7 MCV 93.0 MCH 30.9 MCHC 33.2 RDW 13.4 Plt Count 270 MPV 9.0 Absolute Neuts (auto) 5.2 Neutrophils % 69.2 D Lymphocytes % 20.6 D Monocytes % 6.4 Eosinophils % 2.9 Basophils % 0.9 Nucleated RBC % 0 Sodium 137 Potassium 4.4 Chloride 106 Carbon Dioxide 24 Anion Gap 8 BUN 14 Creatinine 1.0 Creat Clearance w eGFR > 60 Random Glucose 115 H Calcium 8.6 Total Bilirubin 0.7 AST 20 ALT 37 Alkaline Phosphatase 39 L Total Protein 7.0 Albumin 3.4 TSH 1.66 Date of Admission:05/27/18 Date of Discharge: 05/29/18 Minutes to complete discharge: 45 Discharge Summary Reason For Visit: CEREBRAL INFARCT Current Active Problems Aphasia (Acute) Cerebrovascular accident (CVA) (Acute) Hypertension (Acute) Left middle cerebral artery embolism (Acute) Hospital Course: 63 year old male with history of HTN, initially presented to [facility] with complaints of difficulty understanding what he was reading in the daily newspaper and difficulty finding words to express himself, first noted at 9am when he tried to read the newspaper after waking up. Later at midday, he returned home and reported that he strung words together in sentences which did not make sense - inappropriate word sequences that was incoherent but no slurring of speech. No limb numbness/weakness or LOC. No headache/nausea/ vomiting/dizziness. He was admitted for acute stroke work-up and had the following investigations: ECG - Sinus Rhythm CT Head - negative MRI Brain - 0.5 cm acute cortical infart within the temporal/parietal lobe at the level to mid convexity level. There is also a 0.4x0.2 cm acute cortical infarct within the left parietal lobe more superiorly as well as 0.3cm acute cortical infart within the left temporal lobe posteriorly. No intracranial hemorrhage is noted. Carotid Duplex - no hemodynamically significant stenosis. Echo - normal LV function, severe Pul HTN, no shunt on bubble study. Given above work-up, clnical improvement in his dysphasia, and after being evaluated by Speech Therapy, Neurology, Cardiology, he is currently medically and neurologically stable for discharge in the care of his . He was observed on telemetry with no overnight events except for episodes of bradycardia with HR of 48 mostly when asleep. He was evaluated by PT and found to be ambulating well and without concern for motor neurological deficit. He was started on Aspirin and Lipitor, in addition to his daily Lisinopril. He was advised to follow with his PCP, Speech therapy, Cardiology for Holter, and Neurology. He should have LFTs and repeat Lipids in 4-6 weeks by PCP as well as referral to Pulmonary as an out-patient for further investigation of his elevated pulmonary pressures, which appear to be asymptomatic currently. Condition: Stable - Instructions Diet, Activity, Other Instructions: Low salt, low cholesterol diet Speech therapy follow up Please follow with PCP, Cardiology and Neurology If any worsening of symptoms of development of new symptoms such as headache, visual disturbance, nausea, vomiting, limb numbness or weakness, further speech disturbance, please seek medical attention emergently. Referrals: Stephania Bhatti [Primary Care Provider] - Armin Villavicencio DO [Staff Physician] - Ann Taveras, MS, CCC [Speech Therapist] - Jose Fung MD [Staff Physician] - 1 Week Disposition: HOME - Home Medications Comprehensive Discharge Medication List: Ambulatory Orders Lisinopril 10 mg PO DAILY 05/27/18 Aspirin Coated [Ecotrin -] 81 mg PO DAILY 30 Days #30 tablet.ec 05/29/18 Atorvastatin Ca [Lipitor] 20 mg PO HS 30 Days #30 tablet 05/29/18 Problem List - Problems (1) Cerebrovascular accident (CVA) Code(s): I63.9 - CEREBRAL INFARCTION, UNSPECIFIED Qualifiers: CVA mechanism: thrombosis Precerebral and cerebral artery: middle cerebral artery Laterality of affected vessel: left Qualified Code(s): I63.312 - Cerebral infarction due to thrombosis of left middle cerebral artery This patient is new to me today: Yes Date on this admission: 05/29/18 Emergency Visit: Yes ED Registration Date: 05/27/18 Care time: The patient presented to the Emergency Department on the above date and was hospitalized for further evaluation of their emergent condition. Critical Care patient: No - Discharge Referral Referred to [facility] Med P.C.: No
== END 2018-05-29 17:20 | disposition home or self-care (01) | DRG 66 ==
LOC: FER 12:29 → SUPCPDRO 12:29 → J4S 17:30
DX: I63.312 Cerebral infarction due to thrombosis of left middle cerebral artery (principal); F80.2 Mixed receptive-expressive language disorder; I10 Essential (primary) hypertension; E78.5 Hyperlipidemia, unspecified; R00.1 Bradycardia, unspecified
CPT/HCPCS: 36415; 70450-TC; 70544-TC; 70551-TC; 80053; 80061; 80307; 81003; 82465; 82550; 83036; 83718; 83721; 83735; 84443; 84478; 84484; 85025; 85027; 85610; 86850; 86900; 86901; 93306-TC; 93880-TC; 97116-GP; 97161-GP; 99285-25; J7030

== ENCOUNTER 2018-06-28 10:31 | Day surgery (SDC) | payer BC, OTHER ==
[2018-06-28 11:36] VITALS: BMI 26.6
[2018-06-28] MEDS ORDERED: LIDOCAINE VISCOUS 2% ORAL/TOP 20 ML UNIT-DOSE CUP ONE (12:41)
[2018-06-28] MEDS ORDERED: LIDOCAINE VISCOUS 2% ORAL/TOP 20 ML UNIT-DOSE CUP MM ONE ×2 (12:55)
[2018-06-28 13:12] VITALS: TEMP 97.5
[2018-06-28 14:55] VITALS: BP 110/77; PULSE 62
--- NOTE | 2018-07-03 08:49 | ECHO ---
Name: SPYROPOULOS, MARISOL Exam:Transesophageal Echocardiogram Study Date: 06/28/2018 12:52 PM Age: 63 yrs Reason For Study: r/o thrombus Height: 67 in Weight: 165 lb BSA: 1.9 m2 Procedure: A 2D transesophageal echocardiogram with Doppler and color flow Doppler was performed. Informed conse nt for Transesophageal Echocardiogram, and use of a contrast agent as needed, was obtained prior to the proc edure. The patient was brought to the endoscopy suite in a fasting state. An intravenous line was placed. A topical anesthetic agent was used for oropharangeal anesthesia. A bite block was inserted. A multifrequency, multiplane transesopheageal echocardiographic endoscope was inserted and manipulated in the standard fashion to achieve multiplane views. The usual views were obtained; basal, mid-esophageal, transgastric and a ortic views. The patient's vital signs, including blood pressure, heart rate, pulse oximetry and cardiac rh ythm were monitored throughout the procedure and remained stable. The patient tolerated the procedure well with out evidence of orophangeal or esophageal trauma. There were no complications. Left Ventricle The left ventricle is normal in size. Left ventricular systolic function is normal. No regional wall motion abnormalities noted. Atria The left atrial size is normal. No left atrial mass or thrombus visualized. No thrombus is detected i n the left atrial appendage. A prominent eustachian valve is noted. Redundant interatrial septum with color Doppler revealing flow across foramen ovale and opening size of 0.2 cm. Injection of contrast documented an interatrial shunt. Mitral Valve Mildly redundant mitral valve leaflets. There is mild mitral regurgitation. Tricuspid Valve The tricuspid valve is normal in structure and function. There is mild tricuspid regurgitation. Aortic Valve The aortic valve is normal in structure and function. The aortic valve is trileaflet. No aortic regur gitation is present. Pulmonic Valve The pulmonic valve is not well visualized. Great Vessels Small atherosclerotic plaque in distal aortic arch. Pericardium/Pluera There is no pericardial effusion. Interpretation Summary The left ventricle is normal in size. Left ventricular systolic function is normal. No regional wall motion abnormalities noted. The left atrial size is normal. No left atrial mass or thrombus visualized. No thrombus is detected in the left atrial appendage. A prominent eustachian valve is noted. Redundant interatrial septum with color Doppler revealing flow across foramen ovale and opening size of 0.2 cm Injection of contrast documented an interatrial shunt c/w small PFO Mildly redundant mitral valve leaflets There is mild mitral regurgitation. There is mild tricuspid regurgitation. Small atherosclerotic plaque in distal aortic arch There is no pericardial effusion. Bijan Lopes MD 06/30/2018 11:46 AM
== END 2018-06-28 14:25 | disposition home or self-care (01) ==
LOC: JASU-ENDO 10:31
PROVIDERS: ATTEND Internal Medicine Cardiovascular Disease
PROC: B246ZZ4 Ultrasonography of Right and Left Heart, Transesophageal (ICD-10-PCS; principal; 2018-06-28 11:30)
DX: I63.9 Cerebral infarction, unspecified (principal); I10 Essential (primary) hypertension
CPT/HCPCS: 93312; 93325